=== PATIENT | female | born 1955 | race Caucasian/White ===

== ENCOUNTER 2016-08-10 05:16 | Emergency (ER) | payer BC ==
--- OUTSIDE RECORDS SUMMARY | 2016-08-10 05:46 | XMS REPORT | Continuity of Care Document ---
:1955 Author Organization [facility] ([facility]) Address [address] [place] [address] Phone [phone] Care Team Providers Name Role Phone MikkiZain Primary Care Provider [phone] Source Comments This disclosure is being made pursuant to the Care Everywhere program, applicable federal and state laws, and may not contain all informaitonavailable regarding this patient.[facility] ([facility]) Active Allergies and Adverse Reactions No Active Allergies Current Medications Not on file Active Problems Problem Noted Date Pain in joint, lower leg 05/20/2008 Social History Tobacco Use Types Packs/Day Years Used Date Never Assessed Last Filed Vital Signs Vital Sign Reading Time Taken Blood Pressure 133/75 05/20/2008 9:02 AM CDT Pulse 68 05/20/2008 9:02 AM CDT Temperature 37 C (98.6 F) 05/20/2008 9:02 AM CDT Respiratory Rate - - Height 1.65 m (5' 4.96") 05/20/2008 9:02 AM CDT Weight 83.398 kg (183 lb 13.8 oz) 05/20/2008 9:02 AM CDT Body Mass Index 30.63 05/20/2008 9:02 AM CDT Oxygen Saturation - - Plan of Care Health Maintenance Due Date Last Done Comments HCV Screening 1955 Hepatitis B Vaccine (1 of 3 - Primary Series) 1955 Tdap Vaccine 01/23/1968 Lipid Disorder Screening 1975 MMR Vaccine 1975 Td Vaccine 1975 Cervical Cancer Screening 1987 Mammogram 1997 Colonoscopy 2007 Influenza Vaccine: Seasonal (#1) 09/29/2015 Results from Last 3 Months Not on file
--- OUTSIDE RECORDS SUMMARY | 2016-08-10 05:46 | XMS REPORT | Continuity of Care Document ---
:1955 Author Organization [facility] [place] [address] Care Team Providers Name Role Phone MikkiZain Primary Care Provider [phone] Source Comments This disclosure is being made pursuant to the [employer] program and maynot contain all information available regarding this patient.[facility] Active Allergies and Adverse Reactions Not on File Current Medications Be aware that medications may not be up to date as of this document. Alwaysverify current medications with the patient. Not on file Active Problems Not on file Social History Tobacco Use Types Packs/Day Years Used Date Never Smoker Last Filed Vital Signs Vital Sign Reading Time Taken Blood Pressure 122/82 08/23/2012 10:19 AM CDT Pulse 76 08/23/2012 10:19 AM CDT Temperature 35.4 C (95.8 F) 08/23/2012 10:19 AM CDT Respiratory Rate - - Height 1.676 m (5' 6") 08/23/2012 10:19 AM CDT Weight 93.895 kg (207 lb) 08/23/2012 10:19 AM CDT Body Mass Index 33.43 08/23/2012 10:19 AM CDT Oxygen Saturation - - Plan of Care Health Maintenance Due Date Last Done Comments Tetanus/Pertussis (1 - Tdap) 01/23/1976 Pap Smear 1978 Mammogram 2007 Well Adult Visit 2007 Influenza Immunization (#1) 2015 Colonoscopy 09/12/2022 09/12/2012 Results from Last 3 Months Not on file
[2016-08-10] MEDS ORDERED: MECLIZINE HCL 25 MG TABLET PO ONE (05:49)
[2016-08-10] MEDS ORDERED: MECLIZINE HCL 25 MG TABLET ONE (05:54)
--- NOTE | 2016-08-10 05:56 | ERNOTE ---
Dizziness ER Record Date of Service: 08/10/16 Presenting Symptoms: dizziness Time Seen by Provider: 08/10/16 05:37 Source: patient Exam Limitations: no limitations Immunizations: IMMUNIZATION HX Immunizations Up to Date Yes Allergies/Adverse Reactions: Allergies Allergy/AdvReac Type Severity Reaction Status Date / Time No Known Allergies Allergy Unverified 08/10/16 05:29 Home Medications: HOME MEDICATIONS Amoxicillin/Potassium Clav [Augmentin 875-125 Tablet] 875 mg PO BID #20 tablet 08/10/16 [Last Taken Unknown] Gabapentin 300 mg PO HS 08/10/16 [Last Taken Unknown] Meclizine HCl 25 mg PO TID #10 tablet 08/10/16 [Last Taken Unknown] Metoclopramide HCl [Reglan] 10 mg PO QID PRN #10 tablet 08/10/16 [Last Taken Unknown] - History of Present Illness Narrative: Previously healthy WF who developed sudden onset of dizziness while sitting last night. [place] unsteady on her feet and as if she was going to fall. Worsened during night despite going to bed. While in bed turning in different positions aggravated dizziness and nausea. Vomited several times during night. Arose at 3 AM without any change and came to ED. Denies any vision changes, headache, pain. Decreased ability to stand/walk:: Present: off balance Usually:: Present: walks w/o assistance Review of Systems - Review of Systems Constitutional: Present: no symptoms reported ENT: Present: no symptoms reported Respiratory: Present: no symptoms reported Cardiology: Present: no symptoms reported Gastrointestinal/Abdominal: Present: no symptoms reported Musculoskeletal: Present: no symptoms reported Skin: Present: no symptoms reported Neurological: Present: See HPI - Patient's Past Medical History Patient History - Medical: Other Patient History - Cardiac/Respiratory: No pertinent hx Patient History - Cancer: No Hx of Cancer Patient History - Surgical Procedures: Cholecystectomy, Hysterectomy Patient History - Other: None LMP (females 10-50): Menopausal - Social History Living Situations: spouse Abuse History: No History of abuse Psych History: No pertinent hx Smoking Status: Never smoker Alcohol Use: rarely Drug Use: none - Immunizations Immunizations Up to Date: Yes Physical Exam - Physical Exam General Appearance: Present: wd/wn, alert, anxious Eye Exam: Normal inspection: bilateral, PERRL: bilateral, EOMI: bilateral Ears, Nose, Throat: Present: normal ENT inspection Neck: Present: normal inspection, nontender Respiratory: Present: no respiratory distress, normal breath sounds, lungs clear Cardiovascular/Chest: Present: regular rate, rhythm, no murmur Gastrointestinal/Abdominal: Present: nontender, soft Extremity Exam: Present: normal inspection, non-tender, no edema Neurological Exam: Present: alert, oriented, liquid flavor compounder II-XII nml as tested DTR: N=norm/NB=norm/brisk/A=abs/DD=dull/dimin/HC=hyperactive: Bicep (R): Absent , Bicep (L): Normal/Brisk, Knee (R): Normal/Brisk, Knee (L): Normal/Brisk Skin Exam: Present: normal color, warm/dry ED Progress - Vital Signs Patient's Vital Signs:: I have reviewed the patient's vital signs. Vital Signs: Vital Signs 08/10/16 05:23 Temperature 36.2 C L Pulse Rate 68 Respiratory 16 Rate Blood Pressure 156/93 O2 Sat by Pulse 100 Oximetry - CT/Ultrasound CT/Ultrasound Narrative: Left maxillary sinusitis - Progress/Reassessment Chief Complaint: Dizziness Progress:: Improved Progress Note-Subjective: 08/10/16 07:21 Nausea and dizziness still present but better Discussed findings of sinusitis and possible association with dizziness Plan - Plan Plan: Home Augmentin as directed Meclizine Reglan Follow up with PCP Departure Clinical Impression: Sinusitis, Vertigo - Departure Condition: Fair Instructions: Sinusitis, Adult, [id number], Vertigo, [id number] Additional Instructions: Take meds as directed Follow up with PCP Referrals: Zain Kaye MD [Primary Care Provider] - Prescriptions: Amoxicillin/Potassium Clav [Augmentin 875-125 Tablet] 875 mg PO BID #20 tablet Meclizine HCl 25 mg PO TID #10 tablet Metoclopramide HCl [Reglan] 10 mg PO QID PRN #10 tablet PRN Reason: Nausea And Vomiting
[2016-08-10 06:00] LABS: Hematocrit 41.5 % (37.0-47.0); Mean Cell Volume 87.9 fl (78-100); Mean Corpuscular Hemoglobin 29.7 pg (27-31); Mean Corpuscular Hgb Conc 33.7 g/dl (32-36); Mean Platelet Volume 9.2 fl (6.0-9.5); Neutrophil # 3.6 K/mm3 (1.3-6.0); Neutrophil % 67.7 % (42-75.0); Platelet Count 208 K/mm3 (150-450); Red Blood Count 4.72 M/mm3 (4.2-5.4); Red Cell Distribution Width 12.3 % (11.5-14.0); White Blood Count 5.3 K/mm3 (4.0-10.5)
[2016-08-10] MEDS ORDERED: METOCLOPRAMIDE HCL 5 MG/ML VIAL IV ONE (06:03)
[2016-08-10 06:14] LABS: ALT 22 U/L (19-67); AST 18 U/L (0-48); Albumin * 3.6 gm/dl (3.4-5.0); Alkaline Phosphatase * 67 U/L (50-170); Anion Gap 9.1 mmol/L (6.8-13.8); BUN/Creatinine Ratio 20.7 (9.0-21.6); Bilirubin, Total 0.3 mg/dL (0.0-1.1); Blood Urea Nitrogen 19 mg/dL (3-23); Carbon Dioxide 31.9 mmol/L (24-32.6); Chloride 106 mmol/L (97-106); Glucose * 156 mg/dL (70-110); Sodium 143 mmol/L (132-142); Total Protein 7.2 gm/dL (6.2-8.2)
[2016-08-10] MEDS ORDERED: METOCLOPRAMIDE HCL 5 MG/ML VIAL ONE ×2 (06:22→06:27)
[2016-08-10 07:16] VITALS: BP 130/72
== END 2016-08-10 07:43 | disposition home or self-care (01) ==
LOC: ER 05:16
DX: J32.9 Chronic sinusitis, unspecified (principal); R42 Dizziness and giddiness

== ENCOUNTER 2017-02-04 01:52 | Emergency (ER) | payer BC ==
--- NOTE | 2017-02-04 02:09 | ERNOTE ---
Medical Problem HPI - Narrative Date of Service: 02/04/17 - General Chief Complaint: General Assessment Time Seen by Provider: 02/04/17 02:07 Source: patient Exam Limitations: no limitations - Immun/Allergies/Home Medications Immunizations: IMMUNIZATION HX Immunizations Up to Date Yes History of Influenza Vaccine No Hx Pneumococcal Vaccination No Allergies/Adverse Reactions: Allergies No Known Allergies Allergy (Unverified 08/10/16 05:29) Home Medications: HOME MEDICATIONS Gabapentin 300 mg PO HS 08/10/16 [Last Taken Unknown] Meclizine HCl [Antivert] 12.5 mg PO Q6H PRN #30 tab 02/04/17 [Last Taken Unknown ] Metoclopramide HCl [Reglan] 10 mg PO QID PRN #20 tab 02/04/17 [Last Taken Unknown] - History of Present History Narrative: 62 year old that awoken with severe nausea/vomiting and dizziness. No complaints of a headache or fever. She had difficulty walking due to problems with balance, but denies focal weakness. Similar symptoms occurred in July due to a sinus infection. Date (Duration): 02/04/17 Time (Timing): 02:27 Timing: constant Severity: severe Modifying Factors - (Improves): Present: other - nothing Modifying Factors - (Worsens): Present: movement - increases the dizziness and N /V. Review of Systems - Review of Systems Constitutional: Present: no symptoms reported EYE: Present: see HPI ENT: Present: no symptoms reported Respiratory: Present: no symptoms reported Cardiology: Present: no symptoms reported Gastrointestinal/Abdominal: Present: nausea, vomiting Genitourinary: Present: no symptoms reported Musculoskeletal: Present: no symptoms reported Skin: Present: no symptoms reported Neurological: Present: See HPI, dizziness/light-headedness. Absent: numbness, tingling, tremors, pre-existing deficit Endocrine: Present: no symptoms reported Hematologic/Lymphatic: Present: no symptoms reported Psych: Present: no symptoms reported - Patient's Past Medical History Patient History - Medical: Other Patient History - Cardiac/Respiratory: No pertinent hx Patient History - Cancer: No Hx of Cancer Patient History - Surgical Procedures: Cholecystectomy, Hysterectomy Patient History - Other: None LMP (females 10-50): hysterectomy - Social History Living Situations: spouse Abuse History: No History of abuse Psych History: No pertinent hx Smoking Status: Never smoker Have you smoked in the past 12 months: No Alcohol Use: rarely Drug Use: none - Immunizations Immunizations Up to Date: Yes Hx Pneumococcal Vaccination: No History of Influenza Vaccine: No Physical Exam - Physical Exam Narrative: Holding emesis bag at mouth. General Appearance: Present: mild distress, moderate distress, other - actively wretching. Head Exam: Present: no evidence of injury, no tenderness w palpation Eye Exam: Normal inspection: bilateral, PERRL: bilateral, EOMI: bilateral Ears, Nose, Throat: Present: normal ENT inspection Neck: Present: normal inspection Respiratory: Present: no respiratory distress Cardiovascular/Chest: Present: regular rate, rhythm Gastrointestinal/Abdominal: Present: nondistended Back Exam: Present: normal inspection Extremity Exam: Present: normal inspection Neurological Exam: Present: normal mood/affect, other - head movement increases the symptoms. Skin Exam: Present: normal color ED Progress - Results and Orders Patient's Lab Results:: I have reviewed the patient's lab results. - Vital Signs Patient's Vital Signs:: I have reviewed the patient's vital signs. Vital Signs: Vital Signs 02/04/17 01:55 Temperature 36.1 C L Pulse Rate 68 Respiratory 18 Rate Blood Pressure 145/89 O2 Sat by Pulse 100 Oximetry - EKG EKG: NSR EKG read: Interp. by me EKG Comments: rate of 72, normal axis - CT/Ultrasound CT/Ultrasound Narrative: CT head- - Progress/Reassessment Chief Complaint: General Assessment Progress:: Improved Progress Note-Subjective: 02/04/17 02:53 Given Reglan 10 mg IV, Zofran 4 mg ODT, Benadryl 25 mg IV, and Anitvert 25 mg po. 02/04/17 04:22 Feels much better. NS IV fluids. No longer nauseous. Departure Clinical Impression: Benign paroxysmal positional vertigo - Departure Disposition: Home self-care Condition: Fair Instructions: Benign Positional Vertigo Print Language: Mongolian Additional Instructions: If you feel worse return to the ED. Referrals: Morales Zacarias MD [Courtesy Staff] - Prescriptions: Meclizine HCl [Antivert] 12.5 mg PO Q6H PRN #30 tab PRN Reason: DIZZINESS Metoclopramide HCl [Reglan] 10 mg PO QID PRN #20 tab PRN Reason: Nausea And Vomiting
[2017-02-04 02:12] LABS: Hematocrit 41.5 % (37.0-47.0); Mean Cell Volume 89.8 fl (78-100); Mean Corpuscular Hemoglobin 30.3 pg (27-31); Mean Corpuscular Hgb Conc 33.7 g/dl (32-36); Mean Platelet Volume 9.3 fl (6.0-9.5); Neutrophil % 56.6 % (42-75.0); Platelet Count 225 K/mm3 (150-450); Red Blood Count 4.62 M/mm3 (4.2-5.4); Red Cell Distribution Width 12.4 % (11.5-14.0)
[2017-02-04] MEDS ORDERED: ONDANSETRON 4 MG TAB.RAPDIS PO ONE (02:15)
[2017-02-04] MEDS ORDERED: ONDANSETRON 4 MG TAB.RAPDIS ONE (02:16)
[2017-02-04] MEDS ORDERED: DIAZEPAM 5 MG/ML SYRG IV ONE (02:19)
[2017-02-04 02:20] LABS: Anion Gap 7.8 mmol/L (6.8-13.8); BUN/Creatinine Ratio 21.4 (9.0-21.6); Estimated Creat Clear 54.4; Potassium 3.8 mmol/L (3.4-4.6)
[2017-02-04] MEDS ORDERED: MECLIZINE HCL 25 MG TABLET PO ONE (02:47)
[2017-02-04] MEDS ORDERED: diphenhydrAMINE HCL 50 MG/ML VIAL IV ONE (02:48)
[2017-02-04] MEDS ORDERED: METOCLOPRAMIDE HCL 5 MG/ML VIAL IV ONE (02:48)
[2017-02-04] MEDS ORDERED: MECLIZINE HCL 25 MG TABLET ONE (02:48)
[2017-02-04] MEDS ORDERED: METOCLOPRAMIDE HCL 5 MG/ML VIAL ONE (02:50)
[2017-02-04] MEDS ORDERED: diphenhydrAMINE HCL 50 MG/ML VIAL ONE (02:50)
[2017-02-04] MEDS ORDERED: NORMAL SALINE 1,000 ML IV PRN (03:39)
[2017-02-04 04:39] VITALS: BP 121/69
== END 2017-02-04 04:25 | disposition home or self-care (01) ==
LOC: ER 01:52
DX: H81.10 Benign paroxysmal vertigo, unspecified ear (principal)